=== PATIENT | male | born 1950 | race Caucasian/White ===

== ENCOUNTER → 2021-12-06 13:12 | Outpatient (CLI) | payer SELFPAY ==
--- NOTE | 2021-12-06 | DI.RAD.S_ITS ---
PROCEDURE: FL BARIUM SWALLOW W SPEECH INDICATIONS: Dysphagia, oropharyngeal phase COMPARISON: None. TECHNIQUE: Examination was conducted in conjunction with speech pathology per standard protocol. In the lateral projection, filming was performed of the patient swallowing. AP projection filming may also be performed with patient swallowing. COMPARISON: FINDINGS: Function: The oral preparatory phase appears normal, with proper containment. The subsequent oral propulsive phase, pharyngeal phase, and esophageal phase of swallowing also appear normal with all proffered substances. Laryngotracheal aspiration was identified with thin and nectar consistency liquids. No pathologic vallecular pooling. Morphology: No cricopharyngeal bar is identified. No cervical esophageal webs. No Zenker's diverticulum. No strictures. IMPRESSION: Laryngotracheal aspiration. Please see independent report generated by the speech pathologist for further detailed specifics and characterization of the modified speech swallow study. Dictated by: Allie Eastman MD, PhD on 12/06/2021 at 14:26 Approved by: Allie Eastman MD, PhD on 12/06/2021 at 14:28
--- NOTE | 2021-12-06 16:31 | ST.SWALLOW ---
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 Pt had a VFSS on 10/01/21 which indicated moderate-severe oropharyngeal dysphagia. A repeat VFSS was completed on 10/15/21, which indicated continued moderate- severe oropharyngeal dysphagia with some consistencies tolerated with improved safety as compared to 10/01 VFSS and new silent aspiration on puree that was not seen on prior study. Previous swallow studies indicated left head turn and chin tuck increased aspiration and pt has previously demonstrated reduced recall of information/ carryover of strategy use during speech therapy sessions indicating reliable use of compensatory strategies may be unlikely. He currently has a PEG tube, but has been weaned off of oxygen and has been working with a speech therapist to increase diet tolerance. Per speech therapist, pt has tolerated whole pills and has slowly weaned off of PEG tube feeds to PO intake. This week was his first week with no tube feeds. Pt is scheduled for PEG tube removal tomorrow if today's assessment goes well. Subjective Observations Pt arrived on time accompanied by his SUSTAINMENT LOGISTICS ANALYST from [facility]. Reviewed procedure and process with pt and he expressed understanding and agreed to participate. Patient Positioning Position View Lat-A/P Imaging Lateral View Textures Administered Trials Presented Thin Liquid via Spoon,Kenel Liquid via Spoon,Kenel Liquid via Cup,Honey Liquid via Spoon,Regular Textures Oral Phase Source: MBSIMP (TM) (C) Bolus Specific Scoring Grid Lip Closure No Impairment (WNL) Tongue Control During Bolus Hold Mild Impairment Bolus Prep/Mastication No Impairment (WNL) Bolus Transport/Lingual Motion No Impairment (WNL) A/P Lingual Propulsion Delay No Oral Residue No Impairment (WNL) Nasal Regurgitation No Additional Oral Phase Observations No anterior loss of bolus. Mild posterior loss of bolus with bolus escaping to base of tongue. Mastication was WFL and a/p propulsion of bolus was WNL. Minimal oral residue noted following swallow and velopharyngeal closure was WNL . Significant improvement noted in oral phase of swallow since VFSS on 10/15/21, especially with base of tongue strength as observed in tongue control during bolus hold and clearing of oral residue with initial swallow. Pharyngeal Phase Source: MBSIMP (TM) (C) Bolus Specific Scoring Grid Delayed Initiation of Pharyngeal Swallow Yes: Head of bolus in pyriforms Soft Palate Elevation No Impairment (WNL) Tongue Base Strength/Range of Motion Mild Impairment Residue Along the Tongue Base No Laryngeal Elevation Moderate Impairment Anterior Hyoid Movement Moderate Impairment Epiglottic Range of Motion No Impairment (WNL) Vallecular Residue Yes Clearance of Vallecular Residue Mild Impairment Laryngeal Vestibular Closure Moderate Impairment Pharyngeal Stripping Wave Mild Impairment Pharyngeal Contraction No Impairment (WNL) Posterior Pharyngeal Wall Residue No Upper Esophageal Sphincter Opening Minimal Impairment Residue in the Pyriform Sinuses Yes Clearance of Residue in the Pyriform WFL Sinuses Esophageal Clearance Upright Position Moderate Impairment Additional Pharyngeal Phase Observations Pt exhibited delayed swallow initiation, with the head of the bolus in the pyriforms. While epiglottic inversion was WNL, laryngeal elevation, anterior hyoid excursion, and laryngeal vestibular closure were all moderately impaired, which negatively contributes to swallow safety. Observed clemente aspiration with a delayed cough on cup sip of nectar thick liquids. As the pt took a large bolus size from cup sip, clinician transitioned to spoonfuls rather than cup sips. Smaller bolus of nectar thick liquid via spoon was provided and pt demonstrated penetration (PAS 5) with this consistency. Per pt's [facility] SUSTAINMENT LOGISTICS ANALYST request, thin liquids were trialed. Pt exhibited silent aspiration with thin liquids via spoon. No aspiration or penetration observed with honey thick liquids, though increased pharyngeal residue was observed in valleculae. Residue was partially cleared with a second swallow prompted by clinician. No penetration or aspiration observed with solids and pt cleared residue with a second swallow given a verbal prompt. Previous VFSS ( 10/15) demonstrated silent aspiration with purees and penetration observed with mildly thick liquids, puree, and moderately thick liquids. Improvement noted with puree and moderately thick (honey thick) liquids, as pt demonstrated no penetration or aspiration with these textures. A/P View Textures Administered Trials Presented Honey Liquid via Spoon,Barium Tablet A/P View Observations Pharyngeal Contraction No Impairment (WNL) Esophageal Function Slowed Clearing,Reverse Peristalsis Esophageal Clearance Upright Position Moderate Impairment Additional Observations Pt presented with slowed clearing and retrograde flow of bolus below the PES on honey thick liquids, though barium tablet cleared quickly and exhibited no retrograde flow. Clinical Impressions Dysphagia Type Moderate-severe oropharyngeal dysphagia Findings The pt presents with moderate- severe oropharyngeal dysphagia in the presence of suspected laryngeal nerve dysfunction with known paralyzed left vocal fold, COPD, and generalized weakness. Significant improvement noted since VFSS on 10/15 in oral phase of swallow, with increased base of tongue strength as observed in tongue control during bolus hold and clearing of oral residue with initial swallow. Improvement noted in pharyngeal phase since VFSS on 10/15 with increased safety with puree and moderately thick (honey thick) liquids, as pt demonstrated no penetration or aspiration with these textures. Recommend honey thick liquids and regular solids. Pt may have ice chips following strict oral care or may continue PEG tube to help meet hydration needs. Pt to discuss options with SNF SUSTAINMENT LOGISTICS ANALYST for meeting nutrition and hydration needs given current diet restrictions. Rehabilitation Potential Good Patient Appropriate for Therapy Yes Recommendations Diet Liquids Order Honey Diet Order Regular Medication Recommendation As Tolerated Aspiration Precautions Recommended Precautions Upright at 90 Degrees,Small Bites/Sips,Double Swallow, Liquids from Spoon Treatment Plan Therapy Recommendations Outpatient Speech Therapy, Compensatory Strategy Education Compensatory Strategies Recommendations Sitting Upright (90 deg), Liquids from Spoon,Small Bites and Sips Short Term Goals The pt will complete pharyngeal swallow exercises with minimal assist across 3 consecutive sessions. Mcc Goals The pt will safely tolerate least restricitive diet to meet his nutrition and hydration needs.
== END ==
DX: R13.12 Dysphagia, oropharyngeal phase (principal)
CPT/HCPCS: 74230; 92611